=== PATIENT | male | born 1960 ===

== ENCOUNTER 2017-06-26 13:00 | Emergency (ER) | payer MEDICAID ==
[2017-06-26] MEDS ORDERED: Alum-Mag Hydrox-Simethicone Susp (30 mL) PO STA (14:14)
[2017-06-26] MEDS ORDERED: Alum-Mag Hydrox-Simethicone Susp (30 mL) ONE (15:05)
[2017-06-26 15:13] LABS: BASO # 0.1 K/uL (0.0-0.2); BASO % 0.7 % (0.0-2.0); EOS # 0.2 K/uL (0.0-0.7); EOS % 2.9 % (0.0-4.0); HEMOGLOBIN 13.8 g/dL (12.0-18.0); LYMPH # 1.4 K/uL (1.0-4.3); LYMPH % 18.6 % (20.0-40.0); MEAN CELL VOLUME 85.5 fl (80.0-94.0); MEAN CORPUSCULAR HEMOGLOBIN 28.8 pg (27.0-31.0); MEAN CORPUSCULAR HGB CONC 33.7 g/dL (33.0-37.0); MEAN PLATELET VOLUME 8.1 fl (7.2-11.7); MONO # 0.5 K/uL (0.0-0.8); NEUT # 5.4 K/uL (1.8-7.0); NEUT % 71.8 % (50.0-75.0); NRBC % 0.1 % (0.0-0.0); RBC 4.8 Mil/uL (4.40-5.90); RED CELL DISTRIBUTION WIDTH 14.2 % (11.5-14.5); WHITE BLOOD COUNT 7.5 K/uL (4.8-10.8)
[2017-06-26 15:14] LABS: ALB/GLOB RATIO 1.3 (1.0-2.1); ALT/SGPT 37 U/L (21-72); AST/SGOT 18 U/L (17-59); BLOOD UREA NITROGEN 14 mg/dl (9-20); CALCIUM 9.3 mg/dL (8.4-10.2); GFR AFRICAN-AMERICAN > 60; GFR NON-AFRICAN AMERICAN > 60; LIPASE 184 U/L (23-300)
--- NOTE | 2017-06-26 15:24 | US ---
HISTORY: Right upper quadrant pain. COMPARISON: None. TECHNIQUE: Sonographic evaluation of the right upper quadrant of the abdomen. FINDINGS: LIVER: The liver exhibits normal size measuring approximately 13.3 cm in cc dimension. . Liver demonstrates smooth contour and normal echogenicity. . No mass. No intrahepatic bile duct dilatation. No ascites. GALLBLADDER: Gallbladder wall is slightly thickened possibly due to incomplete distention. There are at least 3 slightly echogenic foci along the gallbladder wall possibly representing gallbladder polyps or non shadowing calculi. No evidence of pericholecystic fluid collections or sonographic Garner sign. COMMON BILE DUCT: Common bile duct measures approximately 3.3 mm. No stones. No dilatation. PANCREAS: The pancreas is not visualized due to body habitus and bowel gas. RIGHT KIDNEY: Right kidney measures approximately 11.0 x 4.5 x 5.1 cm in length. Normal echogenicity. No calculus, mass, or hydronephrosis. AORTA: No aneurysmal dilatation. IVC: Unremarkable. OTHER FINDINGS: None . IMPRESSION: Three small echogenic foci along the gallbladder wall possibly representing polyps or non shadowing calculi.
--- NOTE | 2017-06-26 16:03 | ED PDOC ---
HPI: Abdomen Time Seen by Provider: 06/26/17 13:47 Chief Complaint (Nursing): Abdominal Pain Chief Complaint (Provider): Abdominal Pain History Per: Patient History/Exam Limitations: no limitations Onset/Duration Of Symptoms: Days (x today) Current Symptoms Are (Timing): Constant Additional Complaint(s): Mr. Luo is a 56 year old male, with a history of gastrititis, who presents to the emergency department complaining of constant, upper abdominal pain (RUQ, LUQ , and Epigastric area), onset today. Denies nausea, vomiting, diarrhea, chest pain, or back pain. No other medical complaints at this time. PMD: Provider TBD GI: Dr. Beckett Past Medical History Reviewed: Historical Data, Nursing Documentation, Vital Signs Vital Signs: Last Vital Signs Temp 99.1 F 06/26/17 13:40 Pulse 65 06/26/17 16:08 Resp 17 06/26/17 13:40 BP 119/82 06/26/17 13:40 Pulse Ox 99 06/26/17 16:08 - Medical History PMH: Anxiety, Depression, Gastritis (As per patient), GERD, Kidney Stones, Schizophrenia Denies: Atrial Fibrillation, Cardia Arrhythmia, Diabetes, Diverticulitis, Gall Bladder Disease, Hepatitis, HIV, HTN, Hypercholesterolemia, Pulmonary Embolism, Seizures, Sexually Transmitted Disease - Surgical History Surgical History: No Surg Hx - Family History Family History: States: Unknown Family Hx - Immunization History Hx Tetanus Toxoid Vaccination: No Hx Influenza Vaccination: No Hx Pneumococcal Vaccination: No - Home Medications Home Medications: Ambulatory Orders Medication Instructions Recorded Alprazolam 0.5 mg PO PRN PRN 05/28/13 Pantoprazole [Protonix EC Tab] 20 mg PO DAILY #30 ect 06/26/17 - Allergies Allergies/Adverse Reactions: Allergies Allergy/AdvReac Type Severity Reaction Status Date / Time No Known Allergies Allergy Verified 12/25/13 04:34 Review of Systems ROS Statement: Except As Marked, All Systems Reviewed And Found Negative Constitutional: Negative for: Fever Cardiovascular: Negative for: Chest Pain Gastrointestinal: Positive for: Abdominal Pain (RUQ, LUQ, Epigastric Area). Negative for: Nausea, Vomiting, Diarrhea Musculoskeletal: Negative for: Back Pain Physical Exam - Reviewed Nursing Documentation Reviewed: Yes Vital Signs Reviewed: Yes - Physical Exam Appears: Positive for: Non-toxic Head Exam: Positive for: ATRAUMATIC, NORMAL INSPECTION, NORMOCEPHALIC Skin: Positive for: Normal Color, Warm, Dry Eye Exam: Positive for: Normal appearance, EOMI, PERRL ENT: Positive for: Normal ENT Inspection Neck: Positive for: Normal Cardiovascular/Chest: Positive for: Regular Rate, Rhythm Respiratory: Negative for: Accessory Muscle Use, Respiratory Distress Gastrointestinal/Abdominal: Positive for: Tenderness (Epigastric, LUQ, RUQ). Negative for: Other (Garner's sign) Back: Positive for: Normal Inspection Extremity: Positive for: Normal ROM. Negative for: Deformity Neurologic/Psych: Positive for: Alert, field machinist II-XII, Oriented (x 3). Negative for : Motor/Sensory Deficits - Laboratory Results Result Diagrams: 06/26/17 14:55 06/26/17 14:55 - ECG ECG Rhythm: Positive for: Sinus Rhythm (Normal), Right Bundle Branch Block. Negative for: Normal QRS, ST/T Changes Rate: 65 O2 Sat by Pulse Oximetry: 99 - Progress Re-evaluation Time: 17:03 Condition: Re-examined, Improved Medical Decision Making Medical Decision Making: Time: 14:14 Impression: Upper Abdominal Pain Differentials include, but not limited to: Gallstone Disease, Cholecystitis, Gastritis Plan: - EKG - CMP - Lipase Stat - CBC - Lidocaine 2% Viscous 15 ml PO STAT - Maalox Plus 30 ml - Pepcid 20 mg IVP STAT - Abdomen Limited Ultrasound Time: 15:22 Abdomen Limited Ultrasound FINDINGS: LIVER: The liver exhibits normal size measuring approximately 13.3 cm in cc dimension. . Liver demonstrates smooth contour and normal echogenicity. . No mass. No intrahepatic bile duct dilatation. No ascites. GALLBLADDER: Gallbladder wall is slightly thickened possibly due to incomplete distention. There are at least 3 slightly echogenic foci along the gallbladder wall possibly representing gallbladder polyps or non shadowing calculi. No evidence of pericholecystic fluid collections or sonographic Garner sign. COMMON BILE DUCT: Common bile duct measures approximately 3.3 mm. No stones. No dilatation. PANCREAS: The pancreas is not visualized due to body habitus and bowel gas. RIGHT KIDNEY: Right kidney measures approximately 11.0 x 4.5 x 5.1 cm in length. Normal echogenicity. No calculus, mass, or hydronephrosis. AORTA: No aneurysmal dilatation. IVC: Unremarkable. OTHER FINDINGS: None . IMPRESSION: Three small echogenic foci along the gallbladder wall possibly representing polyps or non shadowing calculi. Scribe Attestation: Documented by Amauri Basurto, acting as a scribe for Jannette Boggs MD. Provider Scribe Attestation: All medical record entries made by the Scribe were at my direction and personally dictated by me. I have reviewed the chart and agree that the record accurately reflects my personal performance of the history, physical exam, medical decision making, and the department course for this patient. I have also personally directed, reviewed, and agree with the discharge instructions and disposition. Disposition - Clinical Impression Clinical Impression: Abdominal pain - Patient ED Disposition Is Patient to be Admitted: No Doctor Will See Patient In The: Office Counseled Patient/Family Regarding: Studies Performed, Diagnosis, Need For Followup - Disposition Referrals: Yash Beckett MD [Staff Provider] - Disposition: Routine/Home Disposition Time: 17:04 Condition: GOOD Additional Instructions: Take your medications as instructed. Follow up with your PCP in 2-3 days. Prescriptions: Pantoprazole [Protonix EC Tab] 20 mg PO DAILY #30 ect Instructions: Gastritis
[2017-06-26 17:23] VITALS: BP 120/78; PULSE 78; RESP 19; TEMP 97.7; O2SAT 98
--- NOTE | 2017-06-26 19:05 | CARD ---
APPROVED REPORT EKG Measurement Heart [id number] <Conclusion> Normal sinus rhythm Right bundle branch block Abnormal ECG
== END 2017-06-26 17:25 | disposition home or self-care (01) ==
LOC: H.ER 13:00
DX: R10.13 Epigastric pain (principal); K21.9 Gastro-esophageal reflux disease without esophagitis; F20.9 Schizophrenia, unspecified; F32.9 Major depressive disorder, single episode, unspecified; F41.9 Anxiety disorder, unspecified